=== PATIENT | male | born 1965 | race Two or more races ===

== ENCOUNTER 2017-10-06 11:19 | Emergency (ER) | payer OTHER ==
[2017-10-06] MEDS ORDERED: HYDROmorphone 2 MG/ML Syringe IM ONE (11:47)
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
--- NOTE | 2017-10-06 12:39 | CR ---
EXAMINATION: Right femur and right tibia and fibula HISTORY: Trauma COMPARISON: None TECHNIQUE: 2 views of the right femur and 2 views of the right tibia and fibula FINDINGS: There is a transverse fracture through the inferior aspect of the patella with mild distrac tion of the proximal fragment. Otherwise right total knee hardware is demonstrated. There is a small underlying joint effusion and moderate overlying soft tissue swelling. Bone mineralization otherwise appears normal. The right hip is normal. The right ankle appears preserved. The talar dome and ankle mortise are intact. IMPRESSION: 1. Transverse fracture to the inferior patella. 2. Right total knee hardware noted.
== END 2017-10-06 16:04 | disposition home or self-care (01) ==
LOC: MW.ED 11:19
DX: S82.031A Displaced transverse fracture of right patella, initial encounter for closed fracture (principal); Z96.651 Presence of right artificial knee joint; W01.0XXA Fall on same level from slipping, tripping and stumbling without subsequent striking against object, initial encounter
CPT/HCPCS: 73552; 73590; 96372; 99284; J1170